=== PATIENT | female | born 1970 | race Asian ===

== ENCOUNTER 2016-09-29 10:46 | Outpatient (CLI) | payer OTHER ==
[~2016-09-29 10:46] MED LIST: AMLO2.5T PO; ASPIRIN ADULT L81 MG OR; HYDR5TAB9 PO; METHO2.5 PO; PANT40TA PO; PRED10TA27 PO
[2016-09-29 11:13] LABS: PLATELET COUNT 297 K/uL (152-353)
== END 2016-09-29 19:00 | disposition home or self-care (01) ==
LOC: LABW 10:46
PROVIDERS: Nurse Practitioner
DX: D64.9 Anemia, unspecified (principal)
CPT/HCPCS: 36415; 82607; 83540; 85027

== ENCOUNTER 2017-03-18 22:29 | Emergency (ER) | payer OTHER ==
[~2017-03-18] VITALS: Ht 175.3 cm; Wt 88.0 kg
[2017-03-18 22:44] VITALS: BP 145/89; TEMP 98.6
== END 2017-03-18 23:24 | disposition home or self-care (01) ==
LOC: ED 22:29
DX: J06.9 Acute upper respiratory infection, unspecified (principal); J32.8 Other chronic sinusitis
CPT/HCPCS: 99281

== ENCOUNTER 2017-03-21 08:50 | Outpatient (CLI) | payer OTHER | END 2017-03-21 10:30 | disposition home or self-care (01) | LOC: MAMMO 08:50 | DX: Z12.31 Encounter for screening mammogram for malignant neoplasm of breast (principal) | CPT/HCPCS: G0202-TC ==

== ENCOUNTER 2017-07-13 16:33 | Outpatient (CLI) | payer OTHER | END 2017-07-13 21:31 | disposition home or self-care (01) | LOC: LABW 16:33 | DX: R42 Dizziness and giddiness (principal); R79.0 Abnormal level of blood mineral | CPT/HCPCS: 36415; 82728; 83540; 83550 ==

== ENCOUNTER 2017-10-13 20:29 | Emergency (ER) | payer OTHER ==
[~2017-10-13] VITALS: Ht 175.3 cm; Wt 83.9 kg
[2017-10-13] MEDS ORDERED: PRED10TA27 PO (20:46)
[2017-10-13] MEDS ORDERED: FURO20TA67 PO (20:47)
[2017-10-13 21:23] LABS: PLATELET COUNT 303 K/uL (152-353)
[2017-10-13 21:28] LABS: POTASSIUM 3.7 mmol/L (3.6-5.2); SODIUM 135 mmol/L (136-145)
[2017-10-14 00:03] VITALS: BP 142/75; TEMP 98
== END 2017-10-14 00:14 | disposition home or self-care (01) ==
LOC: ED 20:29
PROVIDERS: Specialist
DX: R06.09 Other forms of dyspnea (principal); M32.9 Systemic lupus erythematosus, unspecified; J18.9 Pneumonia, unspecified organism
CPT/HCPCS: 36415; 36600; 80053; 81000; 82550; 82553; 82805; 83605; 83735; 83880; 84100; 84484; 85027; 85379; 85651; 94664; 96372; 99283; J1100

== ENCOUNTER 2017-11-30 10:29 | Outpatient (CLI) | payer OTHER ==
[~2017-11-30 10:29] MED LIST changes: +FURO20TA67 PO
== END 2017-11-30 21:47 | disposition home or self-care (01) ==
LOC: RESP 10:29
DX: R06.02 Shortness of breath (principal)
CPT/HCPCS: 94640; 94664

== ENCOUNTER 2018-03-23 09:49 | Outpatient (CLI) | payer OTHER | END 2018-03-23 21:15 | disposition home or self-care (01) | LOC: MAMMO 09:49 | DX: Z12.31 Encounter for screening mammogram for malignant neoplasm of breast (principal) ==

== ENCOUNTER 2018-10-30 16:38 | Emergency (ER) | payer OTHER ==
[~2018-10-30] VITALS: Ht 175.3 cm; Wt 83.9 kg
[2018-10-30] MEDS ORDERED: AMLODIPINE BESYLATE PO (17:58)
[2018-10-30 21:20] VITALS: BP 122/67; TEMP 97.9
== END 2018-10-30 21:20 | disposition home or self-care (01) ==
LOC: ED 16:38
DX: R22.41 Localized swelling, mass and lump, right lower limb (principal)
CPT/HCPCS: 84550; 99283

== ENCOUNTER 2019-01-06 16:40 | Outpatient (CLI) | payer OTHER ==
[~2019-01-06 16:40] MED LIST changes: +AMLODIPINE BESYLATE PO
[2019-01-06 16:55] LABS: PLATELET COUNT 234 K/uL (152-353)
[2019-01-06 17:08] LABS: POTASSIUM 2.9 mmol/L (3.6-5.2)
== END 2019-01-06 19:22 | disposition home or self-care (01) ==
LOC: LABW 16:40
PROVIDERS: Nurse Practitioner
DX: I49.8 Other specified cardiac arrhythmias (principal); M32.8 Other forms of systemic lupus erythematosus
CPT/HCPCS: 36415; 80048; 85027

== ENCOUNTER 2019-01-31 10:28 | Outpatient (CLI) | payer OTHER ==
[2019-01-31 10:58] LABS: POTASSIUM 3.4 mmol/L (3.6-5.2)
== END 2019-01-31 20:13 | disposition home or self-care (01) ==
LOC: LABW 10:28
PROVIDERS: Nurse Practitioner
DX: E87.6 Hypokalemia (principal); R73.9 Hyperglycemia, unspecified; E53.8 Deficiency of other specified B group vitamins
CPT/HCPCS: 36415; 80048; 82607; 83036

== ENCOUNTER 2019-02-19 15:00 | Emergency (ER) | payer OTHER ==
[~2019-02-19] VITALS: Ht 175.3 cm; Wt 81.6 kg
[2019-02-19 15:42] LABS: PLATELET COUNT 250 K/uL (152-353)
[2019-02-19 15:53] LABS: POTASSIUM 3.1 mmol/L (3.6-5.2); SODIUM 140 mmol/L (136-145)
[2019-02-19] MEDS ORDERED: FURO20TA67 PO (16:23)
[2019-02-19 16:25] VITALS: BP 130/75; TEMP 97.9
== END 2019-02-19 16:25 | disposition home or self-care (01) ==
LOC: ED 15:00
PROVIDERS: Student in an Organized Health Care Education/Training Program
DX: R42 Dizziness and giddiness (principal); E87.6 Hypokalemia; Z79.899 Other long term (current) drug therapy; I10 Essential (primary) hypertension
CPT/HCPCS: 80053; 81000; 83735; 84443; 84484; 85027; 93005; 99283

== ENCOUNTER 2019-03-21 19:37 | Outpatient (CLI) | payer OTHER ==
[2019-03-21 20:10] LABS: POTASSIUM 3.6 mmol/L (3.6-5.2)
== END 2019-03-21 21:00 | disposition home or self-care (01) ==
LOC: LAB 19:37
PROVIDERS: Nurse Practitioner
DX: E87.5 Hyperkalemia (principal); R73.9 Hyperglycemia, unspecified
CPT/HCPCS: 36415; 80048; 83036

== ENCOUNTER 2019-03-29 09:01 | Outpatient (CLI) | payer OTHER | END 2019-03-29 20:27 | disposition home or self-care (01) | LOC: MAMMO 09:01 | DX: Z12.31 Encounter for screening mammogram for malignant neoplasm of breast (principal) ==

== ENCOUNTER 2019-05-02 11:08 | Emergency (ER) | payer OTHER ==
[~2019-05-02] VITALS: Ht 175.3 cm; Wt 81.6 kg
[2019-05-02 11:08] VITALS: TEMP 97.9
[2019-05-02] MEDS ORDERED: K-TAB10 MEQ PO (11:22)
[2019-05-02 12:00] LABS: POTASSIUM 2.8 mmol/L (3.6-5.2); SODIUM 138 mmol/L (136-145)
[2019-05-02 12:08] LABS: PLATELET COUNT 261 K/uL (152-353)
[2019-05-02 13:30] VITALS: BP 137/77
== END 2019-05-02 13:32 | disposition home or self-care (01) ==
LOC: ED 11:08
PROVIDERS: Emergency Medicine
DX: R07.89 Other chest pain (principal)
CPT/HCPCS: 80053; 82550; 82553; 84484; 85027; 93005; 99284

== ENCOUNTER 2020-07-31 10:10 | Emergency (ER) | payer OTHER ==
[~2020-07-31] VITALS: Ht 175.3 cm; Wt 81.6 kg
[~2020-07-31 10:10] MED LIST changes: +K-TAB10 MEQ PO
[2020-07-31 11:20] LABS: PLATELET COUNT 200 K/uL (152-353)
[2020-07-31 11:22] LABS: POTASSIUM 3.4 mmol/L (3.6-5.2)
[2020-07-31 12:58] VITALS: BP 130/87; TEMP 98.9
== END 2020-07-31 12:58 | disposition home or self-care (01) ==
LOC: ED 10:10
DX: J18.9 Pneumonia, unspecified organism (principal); Z20.828 Contact with and (suspected) exposure to other viral communicable diseases
CPT/HCPCS: 80053; 85027; 87040; 87502; 87635; 87651; 96365; 99284; J0696; U0003

== ENCOUNTER 2020-08-04 15:13 | Outpatient (CLI) | payer OTHER | END 2020-08-04 22:05 | disposition home or self-care (01) | LOC: LAB 15:13 | PROVIDERS: ATTEND Nurse Practitioner Family | DX: Z11.59 Encounter for screening for other viral diseases (principal) | CPT/HCPCS: 87635; G2023; U0003 ==

== ENCOUNTER 2020-12-23 01:04 | Emergency (ER) | payer OTHER ==
[~2020-12-23] VITALS: Ht 175.3 cm; Wt 90.7 kg
[2020-12-23 01:47] LABS: PLATELET COUNT 244 K/uL (152-353)
[2020-12-23 03:26] LABS: POTASSIUM 3.5 mmol/L (3.6-5.2); SODIUM 137 mmol/L (136-145)
[2020-12-23 03:48] LABS: PARTIAL THROMBOPLASTIN TIME 31.5 SECONDS (24.5-33.6)
[2020-12-23 03:56] VITALS: BP 151/78; TEMP 99.1
== END 2020-12-23 03:56 | disposition home or self-care (01) ==
LOC: ED 01:04
PROVIDERS: Hospitalist
DX: J06.9 Acute upper respiratory infection, unspecified (principal); J40 Bronchitis, not specified as acute or chronic; Z20.822 Contact with and (suspected) exposure to COVID-19
CPT/HCPCS: 36415; 80053; 82550; 83880; 84484; 85027; 85610; 85730; 87635; 93005; 94664; 96365; 96375; 99284; J0696; J2405; J2930; U0003

== ENCOUNTER 2021-06-15 09:03 | Outpatient (CLI) | payer OTHER | END 2021-06-15 20:02 | disposition home or self-care (01) | LOC: MAMMO 09:03 | PROVIDERS: ATTEND Internal Medicine | DX: Z12.31 Encounter for screening mammogram for malignant neoplasm of breast (principal) ==

== ENCOUNTER 2022-01-06 20:33 | Emergency (ER) | payer OTHER ==
[~2022-01-06] VITALS: Ht 175.3 cm; Wt 93.9 kg
[2022-01-06 21:45] VITALS: BP 136/84; TEMP 98
== END 2022-01-06 21:45 | disposition home or self-care (01) ==
LOC: ED 20:33
DX: M79.18 Myalgia, other site (principal); R07.89 Other chest pain; M25.512 Pain in left shoulder; X50.9XXA Other and unspecified overexertion or strenuous movements or postures, initial encounter; Y92.89 Other specified places as the place of occurrence of the external cause
CPT/HCPCS: 93005; 99283; J1885

== ENCOUNTER 2022-06-21 14:45 | Outpatient (CLI) | payer OTHER | END 2022-06-21 20:03 | disposition home or self-care (01) | LOC: MAMMO 14:45 | PROVIDERS: ATTEND Nurse Practitioner | DX: Z12.31 Encounter for screening mammogram for malignant neoplasm of breast (principal) ==

== ENCOUNTER 2022-10-11 10:44 | Outpatient (CLI) | payer OTHER | END 2022-10-11 20:47 | disposition home or self-care (01) | LOC: RAD 10:44 | PROVIDERS: ATTEND Internal Medicine | DX: Z13.820 Encounter for screening for osteoporosis (principal); N95.8 Other specified menopausal and perimenopausal disorders ==

== ENCOUNTER 2022-10-11 18:56 | Emergency (ER) | payer OTHER ==
[~2022-10-11] VITALS: Ht 175.3 cm; Wt 74.8 kg
[2022-10-11 19:00] VITALS: BP 141/90; TEMP 98.7
[2022-10-11 20:02] LABS: PLATELET COUNT 255 K/uL (152-353)
[2022-10-11 20:15] LABS: POTASSIUM 4.2 mmol/L (3.6-5.2)
== END 2022-10-11 22:00 | disposition home or self-care (01) ==
LOC: ED 18:56
PROVIDERS: Emergency Medicine Emergency Medical Services
DX: J20.9 Acute bronchitis, unspecified (principal); S39.012A Strain of muscle, fascia and tendon of lower back, initial encounter; X58.XXXA Exposure to other specified factors, initial encounter; Y92.89 Other specified places as the place of occurrence of the external cause; Z20.822 Contact with and (suspected) exposure to COVID-19
CPT/HCPCS: 36415; 80048; 81002; 81025; 85027; 87502; 87635; 87651; 96361; 96365; 96375; 99284; J0696; J1885; J2930; U0001

== ENCOUNTER 2022-12-27 19:51 | Emergency (ER) | payer OTHER ==
[~2022-12-27] VITALS: Ht 175.3 cm; Wt 81.6 kg
[2022-12-27 23:08] LABS: PLATELET COUNT 268 K/uL (152-353)
[2022-12-27 23:21] LABS: POTASSIUM 2.9 mmol/L (3.6-5.2)
[2022-12-28 00:10] VITALS: BP 159/90; TEMP 97.3
== END 2022-12-28 00:10 | disposition home or self-care (01) ==
LOC: ED 19:51
PROVIDERS: Emergency Medicine Emergency Medical Services
DX: J18.9 Pneumonia, unspecified organism (principal); E87.6 Hypokalemia
CPT/HCPCS: 36415; 80048; 85027; 87040; 87502; 87635; 87651; 94664; 96374; 99284; J0696; U0003

== ENCOUNTER 2023-02-02 21:08 | Emergency (ER) | payer OTHER ==
[~2023-02-02] VITALS: Ht 175.3 cm; Wt 54.4 kg
[2023-02-02 21:08] VITALS: TEMP 98.1
[2023-02-02 22:10] LABS: PLATELET COUNT 246 K/uL (152-353)
[2023-02-02 22:15] LABS: POTASSIUM 2.8 mmol/L (3.6-5.2)
[2023-02-03 01:50] VITALS: BP 151/88
== END 2023-02-03 01:50 | disposition home or self-care (01) ==
LOC: ED 21:08
PROVIDERS: Family Medicine
DX: E87.6 Hypokalemia (principal); R06.00 Dyspnea, unspecified
CPT/HCPCS: 80053; 85027; 99283

== ENCOUNTER 2023-02-21 10:12 | Outpatient (CLI) | payer OTHER | END 2023-02-21 19:11 | disposition home or self-care (01) | LOC: CT 10:12 | PROVIDERS: ATTEND Internal Medicine | DX: R42 Dizziness and giddiness (principal); R06.02 Shortness of breath; R07.89 Other chest pain; R06.09 Other forms of dyspnea; I10 Essential (primary) hypertension; R53.83 Other fatigue; E78.49 Other hyperlipidemia; E87.6 Hypokalemia ==

== ENCOUNTER 2023-03-10 08:21 | Outpatient (CLI) | payer OTHER | END 2023-03-10 20:34 | disposition home or self-care (01) | LOC: CT 08:21 | PROVIDERS: ATTEND Internal Medicine | DX: R42 Dizziness and giddiness (principal); R06.02 Shortness of breath; R07.89 Other chest pain | CPT/HCPCS: 36415; 82565; 84520; Q9963 ==